=== PATIENT | female | born 1955 | race Caucasian/White ===

== ENCOUNTER 2016-10-14 17:58 | Emergency (ER) | payer MEDICAID, OTHER ==
[~2016-10-14] VITALS: Ht 162.6 cm; Wt 86.0 kg
[2016-10-14 18:00] VITALS: Ht 162.6 cm; Wt 86.0 kg
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
[2016-10-14] MEDS ORDERED: HYDROCODONE/APAP (5/325) TAB PO ONE (18:30)
[2016-10-14] MEDS ORDERED: DIPHTH/TET/ACEL PERTUSS (ADULT) 0.5 ML VIAL IM* ONE (18:30)
[2016-10-14] MEDS ORDERED: LIDOCAINE 2%/EPI MPF (SDV) 20 ML VIAL INJ ONE (18:30)
--- NOTE | 2016-10-14 19:18 | RADRPT ---
PROCEDURE: CT brain without IV contrast. CLINICAL INDICATION: Headache/fall. TECHNIQUE: CT examination of the brain was performed on a 64-slice multidetector scanner. The pat ient was examined without IV contrast. Sagittal and coronal reformatted images were made. The imag es were reviewed on a PACS workstation. Total radiation dose: Total CTDIvol: 44 mGy. Total DLP: 720 mGy-cm. One or more of the following dose reduction techniques were used: automated exposure control, adjustment of the mA and/or kV acco rding to patient size, or use of iterative reconstruction technique COMPARISON: None available. FINDINGS: The ventricles and cerebral sulci are normal in size and morphology. The dickey/white matter differen tiation is well preserved. There is no other abnormal intra-axial high, low density lesion, suggest ing tumor, infarct, bleeding, av malformation or inflammatory mass. No subdural or epidural hematoma. The calvarium is intact. No scalp abnormalities are seen. IMPRESSION: 1. Unremarkable CT brain without IV contrast. RPTAT: GG .Ken Chamberlain MD, MD Date Time Electronically viewed and signed by .Ken Chamberlain MD, on 10/14/2016 19:17 .Y/
--- NOTE | 2016-10-14 19:21 | RADRPT ---
PROCEDURE: CT facial bones. CLINICAL INDICATION: Pain/trauma. TECHNIQUE: CT examination of the facial bones without IV contrast was performed on a [address] [employer]. Coronal and sagittal reformatted images were made. Radiation dose: Total CTDIvol: 29 mGy. Total DLP: 545 mGy-cm. One or more of the following dose r eduction techniques were used: automated exposure control, adjustment of the mA and/or kV according to patient size, or use of iterative reconstruction technique. COMPARISON: None. FINDINGS: There is no fracture, dislocation or destructive lesion. The paranasal sinuses are normal. The ost iomeatal units, nasofrontal ducts and splenoethmoid recesses are clear. There is dehiscence of the lamina papyracea bilaterally. The orbits also normal. There is no nasal mass. There is no deviation of the nasal septum. The temporal bones, base of sku ll, nasopharynx and oropharynx are also normal. The surrounding soft tissues, otherwise, are also u nremarkable. IMPRESSION: 1. Unremarkable CT facial bones. RPTAT: GG .Ken Chamberlain MD, Date Time Electronically viewed and signed by .Ken Chamberlain MD, on 10/14/2016 19:21 .Y/
--- NOTE | 2016-10-14 21:09 | RADRPT ---
PROCEDURE: XR Hand. CLINICAL INDICATION: Status post fall with right thumb pain TECHNIQUE: PA, oblique and lateral views of the right hand were obtained. COMPARISON: None available. FINDINGS: Mineralization is within normal limits. No fracture or osseous lesion is identified. Severe osteoa rthrosis of the year carpometacarpal joint of the thumb is present. Additional osteoarthrosis of th e interphalangeal joints is present most severe in the proximal fifth digit with associated flexion deformity of the fifth proximal interphalangeal joint. The metacarpal phalangeal degenerative narro wing is also greatest for the second digit. Note is made of negative ulnar variants. Soft tissues are unremarkable. No radiopaque foreign body is present. RPTAT:HJJR IMPRESSION: 1. No evidence of fracture or dislocation involving the right hand. 2. 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 Physician Mauricio Date Time Electronically viewed and signed by Physician Mauricio on 10/14/2016 21:09 /
--- NOTE | 2016-10-14 21:10 | RADRPT ---
PROCEDURE: X-ray right knee CLINICAL INDICATION: Fall with right knee pain, and reference marker is directed towards the latera l aspect of the distal femoral metaphysis. TECHNIQUE: 4 views of the right knee COMPARISON: None FINDINGS: Stable fixator at the medial tibial metaphysis. Bone on bone articulation at the bilateral knee luz elena nt compartments, with advanced degenerative changes in the patellofemoral joint compartment demonstr ating bulky marginal osteophytes. At the level of the reference marker there may be a large bulky marginal osteophyte associated of th e patella. CT examination may be of further use. As no significant joint fluid. IMPRESSION: 1. Advanced degenerative changes in the patellofemoral joint compartment with bulky marginal osteop hytes. 2. Degenerative changes in bilateral knee with bone on bone articulation. 3. CT examination may be of further use. RPTAT: [facility] Physician Armando Date Time Electronically viewed and signed by Physician Armando on 10/14/2016 21:09 RS/
[2016-10-14] MEDS ORDERED: AMOX1TAB10 PO (21:22)
== END 2016-10-14 21:36 | disposition home or self-care (01) ==
LOC: FTE 17:58
DX: S01.511A Laceration without foreign body of lip, initial encounter (principal); S80.01XA Contusion of right knee, initial encounter; S09.93XA Unspecified injury of face, initial encounter; W50.0XXA Accidental hit or strike by another person, initial encounter; Y92.9 Unspecified place or not applicable; Z23 Encounter for immunization
CPT/HCPCS: 12013; 70450; 70486; 73130; 73562; 90471; 90715; Z7502; Z7610

== ENCOUNTER 2016-10-20 18:53 | Emergency (ER) | payer OTHER ==
[~2016-10-20] VITALS: Ht 162.6 cm; Wt 85.0 kg
[~2016-10-20 18:53] MED LIST: AMOX1TAB10 PO
[2016-10-20 18:54] VITALS: Ht 162.6 cm; Wt 85.0 kg
--- NOTE | 2016-10-20 19:43 | ERD ---
ER Documentation Chief Complaint Date/Time DATE: 10/20/16 TIME: 19:38 Chief Complaint SUTURE REMOVAL, FACIAL LACERATION FROM OCTOBER 14 HPI 51-year-old female presents here in emergency department for suture removal in the facial area, patient had sutures placed on the , patient finished antibiotics given. Patient denies any opening of the wound, patient denies any fever or chills. Patient denies any discharge coming from the wound. Patient denies any new injury. Patient denies any fever or chills. ROS All systems reviewed and are negative except as per history of present illness. Medications Home Meds Active Scripts Amoxicillin/Potassium Clav (Amox-Clav 875-125 mg Tablet) 875-125 mg Tab, 1 TAB PO BID for 7 Days, #14 TAB Prov:NICA DELEON PA-C 10/14/16 Allergies Allergies: Coded Allergies: No Known Allergy (Unverified , 10/14/16) PMhx/Soc History of Surgery: Yes (plastic surgery, annabel knee surgery, facial surgery) Hx Miscellaneous Medical Probl: Yes (arthritis, chronic pain problem, insomnia) Hx Alcohol Use: Yes Hx Substance Use: No Hx Tobacco Use: Yes Smoking Status: Current every day smoker FmHx Family History: No coronary disease, No diabetes, No other Physical Exam Vitals Vital Signs Date Time Temp Pulse Resp B/P Pulse Ox O2 Delivery O2 Flow Rate FiO2 10/20/16 18:54 98.8 82 18 140/68 97 Physical Exam GENERAL: The patient is well developed and appropriate for usual state of health, in no apparent distress. CHEST: Clear to auscultation bilaterally. There are no rales, wheezes or rhonchi. HEART: Regular rate and rhythm. No murmurs, clicks, rubs or gallops. No S3 or S4. ABDOMEN: Soft, nontender and nondistended. Good bowel sounds. No rebound or guarding. No gross peritonitis. No gross organomegaly or masses. No Ptits sign or McBurney point tenderness. BACK: No midline or flank tenderness. EXTREMITIES: Equal pulses bilaterally. There is no peripheral clubbing, cyanosis or edema. No focal swelling or erythema. Full range of motion. Grossly neurovascularly intact. NEURO: Alert and oriented. Cranial nerves 2-12 intact. Motor strength in all 4 extremities with 5/5 strength. Sensation grossly intact. Normal speech and gait. SKIN: There is a laceration in the nasolabial area, healing well, upper lip area lacerations noted to be closed and healing well also. Well approximated. No gaping of the wound noted. There is no apparent ecchymosis or petechia. The skin is warm and dry. HEMATOLOGIC AND LYMPHATIC: There is no evidence of excessive bruising or lymphedema. No gross cervical, axillary, or inguinal lymphadenopathy. Procedures/MDM Procedure note: After patient's verbal consent, the wound was cleaned with alcohol, after cleaning the wound, the sutures were removed without any difficulty. Patient tolerated procedure well. Medical decision making: Patient wound is healing well, no symptoms of any infection. The sutures were removed without any difficulty. Patient was advised to follow-up with primary care doctor in 2-3 days for reevaluation of symptoms, when there was advised on affected area. Patient is advised to return to emergency department for any worsening symptoms. Disposition: Home. Stable. Departure Diagnosis: Primary Impression: Encounter for removal of sutures Additional Impression: Facial laceration Encounter type: initial encounter Qualified Code: S01.81XA - Facial laceration, initial encounter Condition: Stable Patient Instructions: Suture Removal, No Complication Referrals: INDIO KRUGER MD (PCP) ZEYAD DAVIS NP Oct 20, 2016 19:43
== END 2016-10-20 19:50 | disposition home or self-care (01) ==
LOC: FTE 18:53
DX: Z48.02 Encounter for removal of sutures (principal); S01.81XD Laceration without foreign body of other part of head, subsequent encounter; F17.210 Nicotine dependence, cigarettes, uncomplicated; X58.XXXD Exposure to other specified factors, subsequent encounter
CPT/HCPCS: 99281

== ENCOUNTER 2017-11-04 17:44 | Emergency (ER) | END 2017-11-04 21:56 | disposition home or self-care (01) ==